=== PATIENT | male | born 1970 | race Caucasian/White ===

== ENCOUNTER 2020-02-16 05:42 | Outpatient (CLI) | payer BC ==
[~2020-02-16] VITALS: Ht 180.3 cm; Wt 93.2 kg
== END 2020-02-16 14:40 ==
LOC: PREOP 05:42
PROVIDERS: ATTEND Otolaryngology Otolaryngology/Facial Plastic Surgery
DX: Z01.818 Encounter for other preprocedural examination (principal)

== ENCOUNTER 2020-02-20 06:11 | Day surgery (SDC) | payer BC ==
[2020-02-20] VITALS (10 sets, daily range): BP systolic 119–133; BP diastolic 66–88
[~2020-02-20] VITALS: Ht 180.3 cm; Wt 93.2 kg
[2020-02-20] MEDS ORDERED: LACTATED RINGERS 1,000 ML IV PRN (06:13)
[2020-02-20] MEDS ORDERED: MIDAZOLAM 2 MG/2 ML (VERSED) VIAL ONE (06:47)
[2020-02-20] MEDS ORDERED: fentaNYL INJECTION 100 MCG/2 ML AMP ONE (06:47)
[2020-02-20] MEDS ORDERED: ROCURONIUM 10 MG/ML 5 ML SYRINGE IV ONE (06:47)
[2020-02-20] MEDS ORDERED: LIDOCAINE PF 2% 5 ML (XYLOCAINE) VIAL ONE (06:47)
[2020-02-20] MEDS ORDERED: ONDANSETRON 4 MG/2 ML (SDV) Z0FRAN ONE (06:47)
[2020-02-20] MEDS ORDERED: proPOfol 200 MG/20 ML (DIPRIVAN) VIAL IV ONE ×2 (06:47→08:31)
[2020-02-20 07:02] LABS: BASOPHILS % (AUTO) 1 % (0-10); EOSINOPHILS # (AUTO) 0.1 10^3/uL (0.0-0.3); EOSINOPHILS % (AUTO) 2 % (0-10); HEMATOCRIT 46 % (40-54); LYMPHOCYTES # (AUTO) 1.7 10^3/uL (1.0-4.0); LYMPHOCYTES % (AUTO) 21 % (12-44); MEAN CORPUSCULAR HEMOGLOBIN 33 pg (25-34); MEAN CORPUSCULAR HGB CONC 35 g/dL (32-36); MEAN CORPUSCULAR VOLUME 93 fL (80-99); MEAN PLATELET VOLUME 9.2 fL (9.0-12.2); MONOCYTES # (AUTO) 0.6 10^3/uL (0.0-1.0); MONOCYTES % (AUTO) 7 % (0-12); NEUTROPHILS # (AUTO) 5.6 10^3/uL (1.8-7.8); NEUTROPHILS % (AUTO) 70 % (42-75); PLATELET COUNT 293 10^3/uL (130-400); WHITE BLOOD COUNT 8.1 10^3/uL (4.3-11.0)
[2020-02-20 07:14] LABS: CHLORIDE 103 MMOL/L (98-107); POTASSIUM 3.8 MMOL/L (3.6-5.0); SODIUM 138 MMOL/L (135-145)
[2020-02-20 07:15] LABS: CALCIUM 8.9 MG/DL (8.5-10.1); GLUCOSE 99 MG/DL (70-105)
[2020-02-20 07:17] LABS: CARBON DIOXIDE 24 MMOL/L (21-32)
[2020-02-20 07:19] LABS: CREATININE SERUM 1.09 MG/DL (0.60-1.30); GFR ESTIMATED > 60
[2020-02-20 07:20] LABS: BUN/CREATININE RATIO 19
--- NOTE | 2020-02-20 07:23 | Progress Note-Pre Operative ---
Pre-Operative Progress Note H&P Reviewed The H&P was reviewed, patient examined and no changes noted. Date Seen by Provider: Feb 20, 2020 Time Seen by Provider: 06:30 Date H&P Reviewed: Feb 20, 2020 Time H&P Reviewed: 06:30 Pre-Operative Diagnosis: Nasopharyngeal Mass MITZI MARRERO MD Feb 20, 2020 07:23
[2020-02-20] MEDS ORDERED: NS IV 1000 ML 1,000 ML IV SCH (08:25)
--- NOTE | 2020-02-20 08:25 | Progress Note-Post Operative ---
Post-Operative Progess Note Surgeon (s)/Wool Classer (s) Surgeon MITZI MARRERO MD Wool Classer n/a Pre-Operative Diagnosis Nasopharyngeal Mass Post-Operative Diagnosis same Post-Op Procedure Note Date of Procedure: Feb 20, 2020 Name of Procedure Performed: Removal of Nasopharyngeal Mass Description & Findings Description and Findings: n/a Anesthesia Type get Estimated Blood Loss minimal Packing none. Specimen(s) collected/removed nasopharyngeal mass to pathology for frozen MITZI MARRERO MD Feb 20, 2020 08:25
[2020-02-20] MEDS ORDERED: APAP 325 MG/10.15 ML LIQ (TYLENOL) UDC PO PRN (08:30)
[2020-02-20] MEDS ORDERED: HYDROcodone/APAP 5 MG/325 MG (LORTAB) TAB PO PRN (08:30)
[2020-02-20] MEDS ORDERED: NEOSTIGMINE 3 MG/3 ML VIAL ONE (08:31)
[2020-02-20] MEDS ORDERED: GLYCOPYRROLATE 0.2 MG/ML (ROBINUL) 2 ML VIAL ONE (08:31)
[2020-02-20] MEDS ORDERED: SEVOFLURANE (ULTANE) 15 ML INHAL SOLN ONE (08:32)
[2020-02-20] MEDS ORDERED: ONDANSETRON 4 MG/2 ML (SDV) Z0FRAN IVP PRN (09:00)
[2020-02-20] MEDS ORDERED: PROMETHAZINE INJ 25 MG/ML (PHENERGAN) AMP IVP ONE (09:00)
[2020-02-20] MEDS ORDERED: MEPERIDINE (DEMEROL) INJ 50 MG/ML IVP ONE (09:00)
[2020-02-20] MEDS ORDERED: morphine INJ 10 MG/ML 1ML (SYR OR VIAL) IVP ONE (09:00)
[2020-02-20] MEDS ORDERED: ACHD5005 PO (09:36)
--- NOTE | 2020-02-25 12:19 | Anesthesia-General Post-Op ---
General Patient Condition Mental Status/LOC: Same as Preop Cardiovascular: Satisfactory Nausea/Vomiting: Absent Respiratory: Satisfactory Pain: Controlled Complications: Absent Post Op Complications Complications None Follow Up Care/Instructions Patient Instructions None needed. Anesthesia/Patient Condition Patient Condition Post-dated progress note: Patient was seen on 02-20-20 at approximately 1000 and he was doing well, no complaints, stable vital signs, no apparent adverse anesthesia problems. EV CORDERO DO Feb 25, 2020 12:19
== END 2020-02-20 09:45 | disposition home or self-care (01) ==
LOC: SDC 06:11
PROVIDERS: ATTEND Otolaryngology Otolaryngology/Facial Plastic Surgery
DX: D10.6 Benign neoplasm of nasopharynx (principal)
CPT/HCPCS: 36415; 80048; 85025; 87081; 88184; 88185; 88305; 88331